=== PATIENT | female | born 1990 | race African-American/Black ===

== ENCOUNTER 2017-01-29 18:28 | Emergency (ER) | payer OTHER ==
[2017-01-29 18:32] VITALS: BP 122/90; PULSE 102; TEMP 98.7; BMI 48.2
[2017-01-29] MEDS ORDERED: IBUPROFEN 400 MG TABLET (FP) PO ONE ×2 (18:55→18:58)
--- NOTE | 2017-01-29 19:00 | PDOC ---
History of Present Illness - General Chief Complaint: Sore Throat Stated Complaint: SORE THROAT Time Seen by Provider: 01/29/17 18:33 History Source: Patient - History of Present Illness Timing/Duration: reports: other Associated Symptoms: reports: earache, fever/chills, sore throat. denies: cough , facial pain, headache, nasal congestion, nasal drainage Past History - Past Medical History Allergies/Adverse Reactions: Allergies Allergy/AdvReac Type Severity Reaction Status Date / Time No Known Allergies Allergy Verified 01/29/17 18:32 Home Medications: Ambulatory Orders Amoxicillin - [Amoxicillin 500mg Capsule -] 500 mg PO BID #14 capsule 01/29/17 Ibuprofen [Motrin -] 600 mg PO TID #21 tablet 01/29/17 Asthma: No Cancer: No Cardiac Disorders: No Diabetes: No HTN: No Seizures: No Thyroid Disease: No Other medical history: denies - Immunization History Immunization Up to Date: Yes - Psycho/Social/Smoking Cessation Hx Anxiety: No Suicidal Ideation: No Smoking Status: No Smoking History: Never smoked Have you smoked in the past 12 months: No Number of Cigarettes Smoked Daily: 0 Information on smoking cessation initiated: No Hx Alcohol Use: No Drug/Substance Use Hx: No Substance Use Type: None Hx Substance Use Treatment: No Review of Systems - Review of Systems Constitutional: Yes: Fever HEENTM: Yes: Ear Pain, Throat Pain Respiratory: No: Cough *Physical Exam - Vital Signs Last Vital Signs Temp Pulse Resp BP Pulse Ox 98.7 F 102 H 19 122/90 98 01/29/17 18:30 01/29/17 18:30 01/29/17 18:30 01/29/17 18:30 01/29/17 18:30 - Physical Exam General Appearance: Yes: Appropriately Dressed. No: Apparent Distress HEENT: positive: Normal ENT Inspection, Normal Voice, TMs Normal, Other ( minimal swelling to R tonsils, no exudates or uvular deviation). negative: Scleral Icterus (R), Scleral Icterus (L), Tonsillar Exudate Neck: negative: Lymphadenopathy (R), Lymphadenopathy (L) Respiratory/Chest: negative: Respiratory Distress Integumentary: positive: Dry, Warm Neurologic: positive: Fully Oriented, Alert, Normal Mood/Affect Medical Decision Making - Medical Decision Making 01/29/17 18:55 26 yo F, morbidly obesed, p/w sore throat w/ low grade fever and L ear pain x 3 days. No cough, congestion or rhinorrhea. No sick contacts. Pt well cherry and stable w/ minimal tonsilar enlargement on the R, no e/o BRAIN PICKER. R/o strep -pain control 01/29/17 19:02 01/29/17 19:50 Strep test positive. Patient discharged with antibiotics 01/29/17 19:51 *DC/Admit/Observation/Transfer Diagnosis at time of Disposition: Strep pharyngitis - Discharge Dispostion Disposition: HOME Condition at time of disposition: Good - Prescriptions Prescriptions: Amoxicillin - [Amoxicillin 500mg Capsule -] 500 mg PO BID #14 capsule Ibuprofen [Motrin -] 600 mg PO TID #21 tablet - Patient Instructions Printed Discharge Instructions: Strep Throat Additional Instructions: Take medications as directed.
== END 2017-01-29 19:53 | disposition home or self-care (01) ==
LOC: JERFT 18:28
DX: J02.0 Streptococcal pharyngitis (principal); B95.0 Streptococcus, group A, as the cause of diseases classified elsewhere
CPT/HCPCS: 87070; 87430; 99281-25

== ENCOUNTER 2018-03-02 11:54 | Emergency (ER) | payer OTHER ==
[2018-03-02 12:05] VITALS: BP 128/82; PULSE 83; TEMP 98.2; BMI 47.7
--- NOTE | 2018-03-02 12:22 | PDOC ---
History of Present Illness - General Chief Complaint: Cold Symptoms Stated Complaint: SORE THROAT Time Seen by Provider: 03/02/18 12:19 History Source: Patient - History of Present Illness Timing/Duration: reports: other Associated Symptoms: reports: fever/chills, sore throat. denies: cough Past History - Past Medical History Allergies/Adverse Reactions: Allergies Allergy/AdvReac Type Severity Reaction Status Date / Time No Known Allergies Allergy Verified 03/02/18 12:02 Home Medications: Ambulatory Orders Amoxicillin - [Amoxicillin 500mg Capsule -] 500 mg PO BID #14 capsule 01/29/17 Ibuprofen [Motrin -] 600 mg PO TID #21 tablet 01/29/17 Amoxicillin - [Amoxicillin 875mg Tablet -] 875 mg PO BID #14 tab 03/02/18 Asthma: No Cancer: No Cardiac Disorders: No COPD: No DVT: No Diabetes: No HTN: No Seizures: No Thyroid Disease: No - Immunization History Immunization Up to Date: Yes - Suicide/Smoking/Psychosocial Hx Smoking Status: No Smoking History: Never smoked Have you smoked in the past 12 months: No Number of Cigarettes Smoked Daily: 0 Information on smoking cessation initiated: No Hx Alcohol Use: No Drug/Substance Use Hx: No Substance Use Type: None Hx Substance Use Treatment: No Review of Systems - Review of Systems Constitutional: Yes: Chills, Fever HEENTM: Yes: Throat Pain. No: Ear Pain Respiratory: No: Cough *Physical Exam - Vital Signs Last Vital Signs Temp Pulse Resp BP Pulse Ox 98.2 F 83 18 128/82 100 03/02/18 12:04 03/02/18 12:04 03/02/18 12:04 03/02/18 12:04 03/02/18 12:04 - Physical Exam General Appearance: Yes: Appropriately Dressed. No: Apparent Distress HEENT: positive: Normal Voice, Tonsillar Exudate. negative: Scleral Icterus (R) , Scleral Icterus (L) Neck: positive: Supple. negative: Lymphadenopathy (R), Lymphadenopathy (L) Respiratory/Chest: negative: Respiratory Distress Integumentary: positive: Dry, Warm Neurologic: positive: Fully Oriented, Alert, Normal Mood/Affect Medical Decision Making - Medical Decision Making 03/02/18 12:49 27-year-old female, denies any past medical history, here with sore throat with low-grade fever x several days. Has been taking Motrin at home. No ear pain or cough. Patient well-appearing and stable bilateral tonsillar exudates without any significant swelling. Will treat presumably for strep. Reasons to return discussed with patient *DC/Admit/Observation/Transfer Diagnosis at time of Disposition: Pharyngitis Qualifiers: Pharyngitis/tonsillitis etiology: unspecified etiology Qualified Code(s): J02.9 - Acute pharyngitis, unspecified - Discharge Dispostion Disposition: HOME Condition at time of disposition: Good - Prescriptions Prescriptions: Amoxicillin - [Amoxicillin 875mg Tablet -] 875 mg PO BID #14 tab - Referrals Referrals: Jose Dove MD [Primary Care Provider] - - Patient Instructions Printed Discharge Instructions: Strep Throat - Post Discharge Activity
== END 2018-03-02 12:52 | disposition home or self-care (01) ==
LOC: JERFT 11:54
DX: J02.9 Acute pharyngitis, unspecified (principal)
CPT/HCPCS: 99281-25

== ENCOUNTER 2019-01-18 10:05 | Emergency (ER) | payer OTHER ==
[2019-01-18 10:30] VITALS: BP 125/73; PULSE 95; TEMP 98.2; BMI 35.5
--- NOTE | 2019-01-18 11:29 | PDOC ---
History of Present Illness - General Chief Complaint: Sore Throat Stated Complaint: THROAT PAIN/ CONJESTED Time Seen by Provider: 01/18/19 11:15 - History of Present Illness Initial Comments: 01/18/19 11:25 28-year-old female without comorbidities presents for evaluation of sore throat and nasal congestion and head congestion 10 days no systemic symptoms. Past History - Past Medical History Allergies/Adverse Reactions: Allergies Allergy/AdvReac Type Severity Reaction Status Date / Time No Known Allergies Allergy Verified 01/18/19 10:28 Home Medications: Ambulatory Orders Amox-Tr/K Cl [Augmentin - 875Mg Tablet] 1 tab PO BID #20 tablet 01/18/19 Budesonide [Rhinocort Allergy] 1 spray NS ONCE #1 spray.pump 01/18/19 Asthma: No Cancer: No Cardiac Disorders: No COPD: No DVT: No Diabetes: No HTN: No Seizures: No Thyroid Disease: No - Immunization History Immunization Up to Date: Yes - Suicide/Smoking/Psychosocial Hx Smoking Status: No Smoking History: Never smoked Have you smoked in the past 12 months: No Number of Cigarettes Smoked Daily: 0 Information on smoking cessation initiated: No Hx Alcohol Use: No Drug/Substance Use Hx: No Substance Use Type: None Hx Substance Use Treatment: No Review of Systems - Review of Systems Constitutional: No: Fever HEENTM: Yes: Nose Congestion, Throat Pain, Difficulty Swallowing Respiratory: Yes: Cough *Physical Exam - Vital Signs Last Vital Signs Temp Pulse Resp BP Pulse Ox 98.2 F 95 H 18 125/73 99 01/18/19 10:24 01/18/19 10:24 01/18/19 10:24 01/18/19 10:24 01/18/19 10:24 - Physical Exam Comments: 01/18/19 11:26 HEAD: NC/AT EYES: Conjuntiva clear Ears: Canals and TM's normal NOSE: No d/c injected turbinates tender frontal and maxillary sinuses THROAT: Moist mucous membrances, oral pharanx clear, uvula midline NECK: Supple without adenopathy CARDIAC: S1 S2 LUNGS: CTA Full and Equal breath sounds ABDOMEN: Soft NT ND MS: Full ROM in all joints without edema NEUROLOGIC: No gross sensory or motor deficits, NVID SKIN: Normal color and temperature no lesions or rashes Medical Decision Making - Medical Decision Making 01/18/19 11:27 Augmentin for bacterial sinusitis *DC/Admit/Observation/Transfer Diagnosis at time of Disposition: Sinusitis - Discharge Dispostion Disposition: HOME Condition at time of disposition: Stable Decision to Admit order: No - Referrals Referrals: Jose Dove MD [Primary Care Provider] - Federico Monroy MD [Staff Physician] - - Patient Instructions Printed Discharge Instructions: Sinusitis, DI for Sinusitis Additional Instructions: Return to the emergency room for worsening symptoms. Please follow-up with ear nose and throat doctor in 1-2 days for further evaluation and treatment options. Please take the antibiotics as well as the nasal spray as directed. - Post Discharge Activity
== END 2019-01-18 11:42 | disposition home or self-care (01) ==
LOC: JER 10:05 → JERFT 10:05
DX: J01.90 Acute sinusitis, unspecified (principal)
CPT/HCPCS: 99281-25